=== PATIENT | female | born 1970 | race Caucasian/White ===

== ENCOUNTER 2018-12-28 06:57 | Emergency (ER) | payer SELFPAY ==
[2018-12-28 07:06] VITALS: BP 107/70; PULSE 68; TEMP 98.4; BMI 24.3
--- NOTE | 2018-12-28 07:12 | PDOC ---
History of Present Illness - General Chief Complaint: Nausea Stated Complaint: HEADACHE/NAUSEA Time Seen by Provider: 12/28/18 07:11 - History of Present Illness Initial Comments: 12/28/18 07:50 48yo female with hx of depression who started on sertraline this week presents for eval of gar and n/v that started around 1am. Pt states she went out to dinner last night and had 3 cocktails. Pt states she does not normally drink alcohol. States she also ate plantains with steak last night. States she woke up around 1am and felt nauseated and had a gar. States she forced herself to throw up - nonbloody and nonbilious. States she then drank water/took motrin, but felt nauseated so she forced herself to vomit again - throwing up the meds. Pt states she feels weak this am. NO neck pain. No f/c. No cp/sob. No abd pain. C/o nausea this AM. Pt denies dysuria. Pt denies LE swelling. No rash. No other sick contacts. No diarrhea. Pmhx: depression Pshx: tubal ligation, plastic sx, c section all: nkda meds: sertraline social: no drugs, no tobacco, etoh rare Past History - Past Medical History Allergies/Adverse Reactions: Allergies Allergy/AdvReac Type Severity Reaction Status Date / Time No Known Allergies Allergy Verified 09/02/16 18:41 Home Medications: Ambulatory Orders Sertraline HCl 25 mg PO DAILY 12/28/18 COPD: No GI Disorders: Yes (CONSTIPATION) Psychiatric Problems: Yes (DEPRESSION) - Suicide/Smoking/Psychosocial Hx Smoking History: Never smoked Have you smoked in the past 12 months: No Hx Alcohol Use: No Drug/Substance Use Hx: No Review of Systems - Review of Systems Able to Perform ROS?: Yes Is the patient limited Bulgarian proficient: No Constitutional: No: Chills, Fever HEENTM: No: Nose Pain, Throat Pain, Throat Swelling Respiratory: No: Cough, Shortness of Breath Cardiac (ROS): No: Chest Pain, Palpitations ABD/GI: Yes: Nausea, Vomiting. No: Diarrhea, Abdominal cramping : No: Burning, Dysuria Musculoskeletal: No: Back Pain, Neck Pain Neurological: Yes: Headache. No: Numbness, Paresthesia, Tingling, Tremors, Weakness, Ataxia All Other Systems: Reviewed and Negative *Physical Exam - Vital Signs Last Vital Signs Temp Pulse Resp BP Pulse Ox 98.4 F 68 18 107/70 98 12/28/18 07:02 12/28/18 07:02 12/28/18 07:02 12/28/18 07:02 12/28/18 07:02 - Physical Exam General Appearance: Yes: Nourished, Appropriately Dressed. No: Apparent Distress HEENT: positive: EOMI, IMANI, Normal Voice, Pharynx Normal, Other (dry mm) Neck: positive: Supple, Other (FROM without pain) Respiratory/Chest: positive: Lungs Clear, Normal Breath Sounds. negative: Respiratory Distress Cardiovascular: positive: Regular Rhythm, Regular Rate, S1, S2. negative: Edema Gastrointestinal/Abdominal: positive: Normal Bowel Sounds, Flat, Soft. negative : Guarding, Rebound, Tenderness Musculoskeletal: positive: Normal Inspection. negative: CVA Tenderness Extremity: positive: Normal Capillary Refill, Normal Inspection, Normal Range of Motion. negative: Swelling, Calf Tenderness Integumentary: positive: Normal Color, Dry, Warm Neurologic: positive: pencils washer II-XII NML intact, Fully Oriented, Alert, Normal Mood/ Affect, Motor Strength 10/27 Medical Decision Making - Medical Decision Making 12/28/18 07:57 a/p: 48yo female with gar, n/v this AM after drinking 3 alcoholic drinks at dinner last night and starting sertraline this week -pt does not drink alcohol on a regular basis -suspect gar and n/v from etoh use -pt is nontoxic in appearance, no meningeal signs, neuro intact -pt with hx of tubal ligation -will medicate for n/v and gar -will monitor -will need po challenge prior to dc -discussed the plan with the patient and her daughter at the bedside who agrees with the plan 12/28/18 08:40 pt tolerating po in the ed 12/28/18 09:31 pt states feeling better after tylenol will give crackers and still drinking juice 12/28/18 10:05 pt feels better ate crackers and drank water and apple juice states her gar is resolved stable for dc to home discussed staying hydrated and avoiding alcohol answered all questions and discussed all reasons to return to the ED. *DC/Admit/Observation/Transfer Diagnosis at time of Disposition: Nausea and vomiting, Headache - Discharge Dispostion Disposition: HOME Condition at time of disposition: Stable Decision to Admit order: No - Referrals Referrals: Jose Gallo MD [Staff Physician] - Catherine Ferreira MD [Staff Physician] - - Patient Instructions Printed Discharge Instructions: DI for Headache, DI for Nausea -- Adult Additional Instructions: Please drink plenty of fluids today. Please avoid alcohol. Please eat the BRAT diet today and clear liquids (bananas, rice, apple sauce, and toast). Please make a follow up appointment with your PMD. Please return to the ED with any further concerns or complaints. - Post Discharge Activity
[2018-12-28] MEDS ORDERED: ONDANSETRON *ODT* 4 MG TABLET SL ONE (07:33)
[2018-12-28] MEDS ORDERED: KETOROLAC TROMETHAMINE 60 MG/2 ML VIAL IM ONE (07:33)
[2018-12-28] MEDS ORDERED: RANITIDINE HCL 150 MG TABLET (FP) PO ONE (07:34)
[2018-12-28] MEDS ORDERED: ONDANSETRON *ODT* 4 MG TABLET ONE (07:34)
[2018-12-28] MEDS ORDERED: RANITIDINE HCL 150 MG TABLET (FP) ONE (07:36)
[2018-12-28] MEDS ORDERED: KETOROLAC TROMETHAMINE 60 MG/2 ML VIAL ONE (07:36)
[2018-12-28] MEDS ORDERED: METOCLOPRAMIDE HCL 10 MG TABLET (FP) PO ONE ×2 (09:05→09:15)
[2018-12-28] MEDS ORDERED: ACETAMINOPHEN 500 MG TABLET (FP) PO ONE (09:05)
[2018-12-28] MEDS ORDERED: ACETAMINOPHEN 500 MG TABLET (FP) ONE (09:15)
== END 2018-12-28 10:12 | disposition home or self-care (01) ==
LOC: FER 06:57
PROC: 3E0233Z Introduction of Anti-inflammatory into Muscle, Percutaneous Approach (ICD-10-PCS; principal; 2018-12-28)
DX: R11.2 Nausea with vomiting, unspecified (principal); R51 Headache; F32.9 Major depressive disorder, single episode, unspecified; K59.00 Constipation, unspecified
CPT/HCPCS: 99282-25; Q0162

== ENCOUNTER 2021-05-11 17:00 | Emergency (ER) | payer OTHER ==
[2021-05-11 17:19] VITALS: BP 115/64; PULSE 63; TEMP 98.5; BMI 25.5
[2021-05-11] MEDS ORDERED: IBUPROFEN 600 MG TABLET (FP) PO ONE ×2 (17:19→17:21)
== END 2021-05-11 18:07 | disposition home or self-care (01) ==
LOC: FER 17:00
DX: S93.601A Unspecified sprain of right foot, initial encounter (principal); X50.0XXA Overexertion from strenuous movement or load, initial encounter; W01.0XXA Fall on same level from slipping, tripping and stumbling without subsequent striking against object, initial encounter
CPT/HCPCS: 73610-TC-RT-FY; 73630-TC-RT-FY; 99283-25

== ENCOUNTER 2021-12-11 10:36 | Emergency (ER) | payer BC, OTHER ==
[2021-12-11] MEDS ORDERED: KETOROLAC TROMETHAMINE 30 MG/1 ML VIAL IM ONE (10:50)
[2021-12-11] MEDS ORDERED: ACETAMINOPHEN 325 MG TABLET (FP) PO ONE (10:50)
[2021-12-11] MEDS ORDERED: KETOROLAC TROMETHAMINE 30 MG/1 ML VIAL ONE (10:51)
[2021-12-11] MEDS ORDERED: ACETAMINOPHEN 325 MG TABLET (FP) ONE (10:51)
[2021-12-11 10:53] VITALS: BP 110/65; PULSE 96; TEMP 99.5; BMI 24.0
[2021-12-11 11:32] LABS: HEMATOCRIT 40.3 % (32.4-45.2); HEMOGLOBIN 14.4 G/dL (10.7-15.3); MCH 32.1 pg (25.7-33.7); MCHC 35.6 g/dl (32.0-36.0); MEAN CELL VOLUME 90.2 fl (80-96); MEAN PLT VOLUME 7.4 fl (7.5-11.1); PLATELET COUNT 207.3 10^3/uL (134-434); RBC 4.47 10^6/uL (3.60-5.2); RDW 13.4 % (11.6-15.6)
[2021-12-11 11:47] LABS: ALBUMIN 4.1 g/dl (3.4-5.0); BILIRUBIN,TOTAL 0.9 mg/dl (0.2-1); CALCIUM 9.5 mg/dl (8.5-10); CREATININE 0.7 mg/dl (0.55-1.3)
[2021-12-11 11:52] LABS: PLATELET ESTIMATE ADEQUATE
== END 2021-12-11 12:23 | disposition home or self-care (01) ==
LOC: FER 10:36
PROC: 3E0233Z Introduction of Anti-inflammatory into Muscle, Percutaneous Approach (ICD-10-PCS; principal; 2021-12-11)
DX: U07.1 COVID-19 (principal)
CPT/HCPCS: 36415; 71046-TC-FY; 80053; 84484; 85027; 93005; 99284-25

== ENCOUNTER → 2021-12-13 | Emergency (ER) | payer BC ==
[2021-12-13 08:35] VITALS: BP 129/78; PULSE 69; TEMP 98.1; BMI 25.7
== END ==
LOC: JER 08:26
DX: U07.1 COVID-19 (principal)
CPT/HCPCS: 99281-25

== ENCOUNTER 2023-03-26 21:21 | Emergency (ER) | payer BC ==
[2023-03-26 21:35] VITALS: BP 142/89; PULSE 68; RESP 16; TEMP 98.3; BMI 22.6
== END 2023-03-27 00:01 | disposition home or self-care (01) ==
LOC: FER 21:21
DX: R07.89 Other chest pain (principal); S20.212A Contusion of left front wall of thorax, initial encounter; W22.8XXA Striking against or struck by other objects, initial encounter; Y93.43 Activity, gymnastics
CPT/HCPCS: 71101-TC-LT-FY; 99283-25

== ENCOUNTER 2023-05-05 11:20 | Emergency (ER) | payer BC, OTHER ==
[2023-05-05 11:37] VITALS: BP 113/77; PULSE 64; RESP 15; TEMP 99; BMI 22.6
[2023-05-05] MEDS ORDERED: IBUPROFEN 600 MG TABLET (FP) PO ONE ×2 (11:53→11:58)
== END 2023-05-05 12:02 | disposition home or self-care (01) ==
LOC: FER 11:20
DX: M54.2 Cervicalgia (principal); S16.1XXA Strain of muscle, fascia and tendon at neck level, initial encounter; V49.49XA Driver injured in collision with other motor vehicles in traffic accident, initial encounter; Y92.410 Unspecified street and highway as the place of occurrence of the external cause
CPT/HCPCS: 99283-25

== ENCOUNTER 2024-06-19 15:05 | Emergency (ER) | payer BC, OTHER ==
[2024-06-19 16:14] VITALS: BP 122/65; PULSE 84; RESP 18; TEMP 97.8; BMI 25.0
== END 2024-06-19 16:35 | disposition home or self-care (01) ==
LOC: FER 15:05
DX: S90.31XA Contusion of right foot, initial encounter (principal); W20.8XXA Other cause of strike by thrown, projected or falling object, initial encounter
CPT/HCPCS: 73630-TC-RT-FY; 99283-25

== ENCOUNTER 2024-10-03 13:01 | Emergency (ER) | payer OTHER, BC ==
[2024-10-03 13:12] VITALS: BP 127/68; PULSE 74; TEMP 98.1; BMI 25.7
[2024-10-03] MEDS: IBUPROFEN 600 MG TABLET (FP) PO ONE (13:20)
[2024-10-03 13:21] VITALS: RESP 18
== END 2024-10-03 15:55 | disposition home or self-care (01) ==
LOC: FER 13:01
DX: S29.9XXA Unspecified injury of thorax, initial encounter (principal); T85.43XA Leakage of breast prosthesis and implant, initial encounter; W22.01XA Walked into wall, initial encounter
CPT/HCPCS: 71045-TC-FY; 71250-TC; 93005; 99284-25